=== PATIENT | female | born 1935 | race Caucasian/White ===

== ENCOUNTER 2016-12-05 09:31 | Day surgery (SDC) | payer MEDICARE ==
[~2016-12-05 09:31] MED LIST: BUPIVACAINE HCL 0.75% INJ/PF (7.5 MG/1 ML) 10 ML SDV OD PRN; CHONDR SU A NA/HYALUR INTRAOC KIT (SURGICARE) ONE; EPINEPHRINE INJ/PF 1 MG/1 ML AMPULE ONE; KETOROLAC TROMETHAMINE 0.45% 4 DROP/0.4 ML DROPERETTE OD PRN; LIDOCAINE 4% INJ/PF (40 MG/ML) 5 ML AMPUL OD PRN
[2016-12-05] MEDS: CYCLOPENTOLATE 0.2%/PHENYLEPHRINE 1% OPH SOLN 2 ML OD PRN ×3 (10:35→10:57)
[2016-12-05] MEDS: TROPICAMIDE 1% OPH SOLN 3 ML OD PRN ×3 (10:35→10:57)
[2016-12-05] MEDS: TETRACAINE HCL 0.5% OPH SOLN 0.6 ML DROPERETTE OD PRN ×3 (10:35→11:05)
[2016-12-05] MEDS ORDERED: MIDAZOLAM 2 MG/2 ML INJ ONE (10:38)
[2016-12-05] MEDS: BESIFLOXACIN HCL 0.6% OPH SUSP 5 ML BOTTLE OD PRN ×2 (10:47→11:55)
--- NOTE | 2016-12-05 12:53 | [facility] OPERATIVE REPORT E ---
[facility] Operative Report NAME: BRITNEY WHITT AGE: 81Y DATE OF SURGERY: 12/05/2016 ROOM: PREOPERATIVE DIAGNOSIS: Cataract, right eye. POSTOPERATIVE DIAGNOSIS: Cataract, right eye. PROCEDURE PERFORMED: Phacoemulsification with posterior chamber intraocular lens, right eye. SURGEON: PARISH GALVAN M.D. ANESTHESIA: Topical with MAC. INDICATIONS FOR SURGERY: Difficulty reading words on TV and night driving. Best corrected visual acuity 20/50. DESCRIPTION OF PROCEDURE: The patient was brought to the operating room and placed on the operative table. Following tetracaine drops, topical anesthesia was administered. This consisted of instrument wipe pledgets soaked in a solution of 4% Xylocaine mixed with 0.75% Marcaine in a 1:2 ratio. A 2 x 1 cm pledget was placed in the superior fornix. A 1 x 1 cm pledget was placed in the inferior fornix. The eye was patched shut for 5 minutes. The patch was removed. The eye was sterilely prepped and draped in the usual manner. Lid speculum was placed in the eye. The pledgets were removed, 4-0 black silk sutures were placed around the superior and the inferior rectus muscles to be used as traction. A conjunctival peritomy was made at the 10 o'clock position. Hemostasis was obtained with bipolar cautery. A posterior limbal groove was created using a crescent knife and dissected anteriorly towards the cornea. A sharp point blade was used to create a paracentesis site at the 2 o'clock position. A 2.4 mm keratome was used to enter the anterior chamber through the groove. Viscoelastic was injected into the anterior chamber. An anterior capsulotomy was performed using Utrata forceps in a capsulorrhexis fashion. Hydrodissection and hydrodelineation were performed. Phacoemulsification was performed in njulpn-cyn-lqkkmlf technique. A total of 1 minutes 9 seconds of total phaco time was used. Following this, the I/A unit was used to remove residual cortex. Viscoelastic was injected into the capsular bag. Intraocular lens Model [id number], 20.0 diopters, serial number [id number] was placed in the capsular bag. The I/A unit was used to remove residual viscoelastic. The wound was seen to be watertight under high and low pressure, and no sutures were placed. The intraocular lens was well centered. The pressure was adjusted in the eye to normal pressure. The 4-0 black silk sutures and lid speculum were removed. The eye was shielded after Besivance drops were placed. The patient tolerated the procedure well and was sent to the recovery room in good condition. DICTATING PHYSICIAN: PARISH GALVAN M.D. [id number] [id number] PHY#: [id number] ID: [id number] JOB#: [id number] ACCT: [id number] cc:PARISH GALVAN M.D. >
--- NOTE | 2016-12-05 16:38 | [facility] DISCHARGE SUMMARY E ---
[facility] Discharge Summary NAME: BRITNEY WHITT AGE: 81Y ADMITTED: 12/05/2016 DISCHARGED: 12/05/2016 HOSPITAL COURSE: The patient is a 81-year-old lady who underwent uneventful cataract extraction with intraocular lens implant, right eye on 12/05/2016. She will be discharged to home. She was instructed to resume preoperative medications, to take Tylenol as needed for discomfort, to keep her eye shielded, to use Besivance, Predforte and ketorolac at 3:00 p.m. and 8:00 p.m., and is to follow up in my office in 1 day. DICTATING PHYSICIAN: PARISH GALVAN M.D. [id number] 1251 PHY#: [id number] ID: [id number] JOB#: [id number] ACCT: [id number] cc:PARISH GALVAN M.D. >
== END 2016-12-05 12:38 | disposition home or self-care (01) ==
LOC: SC 09:31
PROVIDERS: ATTEND Ophthalmology
PROC: 08RJ3JZ Replacement of Right Lens with Synthetic Substitute, Percutaneous Approach (ICD-10-PCS; principal; 2016-12-05 10:45)
DX: H25.813 Combined forms of age-related cataract, bilateral (principal); E78.00 Pure hypercholesterolemia, unspecified; I25.10 Atherosclerotic heart disease of native coronary artery without angina pectoris; H40.013 Open angle with borderline findings, low risk, bilateral; H04.123 Dry eye syndrome of bilateral lacrimal glands; H43.813 Vitreous degeneration, bilateral; M19.90 Unspecified osteoarthritis, unspecified site; M79.7 Fibromyalgia; G40.909 Epilepsy, unspecified, not intractable, without status epilepticus; F17.210 Nicotine dependence, cigarettes, uncomplicated; M10.9 Gout, unspecified; M06.9 Rheumatoid arthritis, unspecified; Z88.5 Allergy status to narcotic agent; Z88.0 Allergy status to penicillin; Z88.8 Allergy status to other drugs, medicaments and biological substances; Z79.82 Long term (current) use of aspirin; Z79.1 Long term (current) use of non-steroidal anti-inflammatories (NSAID); Z79.899 Other long term (current) drug therapy
CPT/HCPCS: 66984; V2632; J2250; J3490 ×3; A9270; J0171; 142

== ENCOUNTER 2017-01-08 10:44 | Day surgery (SDC) | payer MEDICARE ==
[~2017-01-08 10:44] MED LIST changes: -BUPIVACAINE HCL 0.75% INJ/PF (7.5 MG/1 ML) 10 ML SDV OD PRN; +BUPIVACAINE HCL 0.75% INJ/PF (7.5 MG/1 ML) 10 ML SDV OS PRN; -CHONDR SU A NA/HYALUR INTRAOC KIT (SURGICARE) ONE; -EPINEPHRINE INJ/PF 1 MG/1 ML AMPULE ONE; +FENTANYL CITRATE INJ/PF 100 MCG/2 ML AMPUL ONE; -KETOROLAC TROMETHAMINE 0.45% 4 DROP/0.4 ML DROPERETTE OD PRN; +KETOROLAC TROMETHAMINE 0.45% 4 DROP/0.4 ML DROPERETTE OS PRN; -LIDOCAINE 4% INJ/PF (40 MG/ML) 5 ML AMPUL OD PRN; +LIDOCAINE 4% INJ/PF (40 MG/ML) 5 ML AMPUL OS PRN; +MIDAZOLAM 2 MG/2 ML INJ ONE
[2017-01-08] MEDS ORDERED: EPINEPHRINE INJ/PF 1 MG/1 ML AMPULE ONE (11:18)
[2017-01-08] MEDS ORDERED: LIDOCAINE 1% INJ-PF (10 MG/ML) 30 ML SDV ONE (11:19)
[2017-01-08] MEDS ORDERED: CHONDR SU A NA/HYALUR INTRAOC KIT (SURGICARE) ONE (11:19)
[2017-01-08] MEDS: BESIFLOXACIN HCL 0.6% OPH SUSP 5 ML BOTTLE OS PRN ×3 (11:45→12:49)
[2017-01-08] MEDS: TETRACAINE HCL 0.5% OPH SOLN 0.6 ML DROPERETTE OS PRN ×2 (11:45→12:17)
[2017-01-08] MEDS: CYCLOPENTOLATE 0.2%/PHENYLEPHRINE 1% OPH SOLN 2 ML OS PRN ×3 (11:45→12:01)
[2017-01-08] MEDS: TROPICAMIDE 1% OPH SOLN 3 ML OS PRN ×3 (11:45→12:01)
--- NOTE | 2017-01-08 13:24 | [facility] OPERATIVE REPORT E ---
[facility] Operative Report NAME: BRITNEY WHITT AGE: 81Y DATE OF SURGERY: ROOM: PROCEDURE: [facility] Operative Report PREOPERATIVE DIAGNOSIS: CATARACT, LEFT EYE. POSTOPERATIVE DIAGNOSIS: CATARACT, LEFT EYE. PROCEDURE PERFORMED: PHACOEMULSIFICATION WITH POSTERIOR CHAMBER INTRAOCULAR LENS, LEFT EYE. SURGEON: PARISH GALVAN MD ANESTHESIA: TOPICAL WITH MAC. INDICATIONS FOR SURGERY: Difficulty with glare with night driving and small print. Best corrected visual acuity is 20/50. PROCEDURE: The patient was brought to the Operating Room and placed on the operative table. Following tetracaine drops, topical anesthesia was administered. This consisted of instrument wipe pledgets soaked in a solution of 4% Xylocaine mixed with 0.75% Marcaine in a 1:2 ratio. A 2 x 1 cm pledget was placed in the superior fornix. A 1 x 1 cm pledget was placed in the inferior fornix. The eye was patched shut for 5 minutes. The patch was removed. The eye was sterilely prepped and draped in the usual manner. Lid speculum was placed in the eye. The pledgets were removed. 4-0 black silk sutures were placed around the superior and the inferior rectus muscles to be used as traction. A conjunctival peritomy was made at the 10 o'clock position. Hemostasis was obtained with bipolar cautery. A posterior limbal groove was created using a crescent knife and dissected anteriorly towards the cornea. A sharp point blade was used to create a paracentesis site at the 2 o'clock position. A 2.4 mm keratome was used to enter the anterior chamber through the groove. Viscoelastic was injected into the anterior chamber. An anterior capsulotomy was performed using Utrata forceps in a capsulorrhexis fashion. Hydrodissection and hydrodelineation were performed. Phacoemulsification was performed in jreyya-tid-cnmxouv technique. A total of 1 minute, 5 seconds phaco time was used. Following this, the I/A unit was used to remove residual cortex. Viscoelastic was injected into the capsular bag. Intraocular lens model SN60WF, 19.5 diopters, serial number [id number] was placed in the capsular bag. The I/A unit was used to remove residual viscoelastic. The wound was seen to be watertight under high and low pressure, and no sutures were placed. The intraocular lens was well centered. The pressure was adjusted in the eye to normal pressure. The 4-0 black silk sutures and lid speculum were removed. The eye was shielded after Besivance drops were placed. The patient tolerated the procedure well and was sent to the Recovery Room in good condition. 0.5 mL of 1% non preserved lidocaine was injected in the eye following the incision. DICTATING PHYSICIAN: PARISH GALVAN M.D. DICTATING PHYSICIAN: PARISH GALVAN M.D. [id number] 1254 PHY#: [id number] ID: [id number] JOB#: [id number] ACCT: [id number] cc:PARISH GALVAN M.D. > MTDD
--- NOTE | 2017-01-08 13:33 | DISCHARGE SUMMARY E ---
Discharge Summary NAME: BRITNEY WHITT : 1935 AGE: 81Y ADMITTED: 01/08/2017 DISCHARGED: HISTORY OF PRESENT ILLNESS: The patient is a 81-year-old lady who underwent uneventful cataract extraction and intraocular lens implant, left eye, on 01/08/2017. She will be discharged to home. She is instructed to resume preoperative medications, take Tylenol as needed for discomfort, to keep her eyes shielded, to use Besivance, Durezol and Ilevro at 3:00 p.m. and 8:00 p.m. and to follow up in my office in 1 day. DICTATING PHYSICIAN: PARISH GALVAN M.D. [id number] 1322 PHY#: [id number] ID: [id number] JOB#: [id number] ACCT: [id number] cc:PARISH GALVAN M.D. >
== END 2017-01-08 13:39 | disposition home or self-care (01) ==
LOC: SC 10:44
PROVIDERS: ATTEND Ophthalmology
PROC: 08RK3JZ Replacement of Left Lens with Synthetic Substitute, Percutaneous Approach (ICD-10-PCS; principal; 2017-01-08 12:00)
DX: H25.812 Combined forms of age-related cataract, left eye (principal); E07.9 Disorder of thyroid, unspecified; F17.210 Nicotine dependence, cigarettes, uncomplicated; M19.90 Unspecified osteoarthritis, unspecified site; M79.7 Fibromyalgia; Z79.899 Other long term (current) drug therapy; Z88.0 Allergy status to penicillin; Z88.1 Allergy status to other antibiotic agents; Z79.82 Long term (current) use of aspirin; Z79.1 Long term (current) use of non-steroidal anti-inflammatories (NSAID)
CPT/HCPCS: 66984; V2632; J2250; J3490 ×4; A9270; J0171; 142; J3010

== ENCOUNTER → 2017-03-10 | Outpatient (CLI) | payer MEDICARE, OTHER ==
--- NOTE | 2017-03-10 11:06 | RADIOLOGY REPORT (SQ) ---
EXAM DESCRIPTION: CT ABDOMEN NO ORAL OR IV COMPLETED DATE/TIME: 03/10/2017 9:53 am REASON FOR STUDY: CHANGE IN BOWEL HABIT R19.4 CHANGE IN BOWEL HABIT R10.9 UNSPECIFIED ABDOMINAL PA IN COMPARISON: None. TECHNIQUE: CT scan of the abdomen performed without intravenous contrast and without oral contrast. Images reviewed with lung, soft tissue, and bone windows. Reconstructed coronal and sagittal MPR im ages reviewed. All images stored on PACS. All CT scanners at this facility use dose modulation, iterative reconstruction, and/or weight based d osing when appropriate to reduce radiation dose to as low as reasonably achievable (ALARA). [facility]: Dose Right [facility]: CareDose [facility]: Dose Right [facility]: Teradose 4D [facility]: Skipjump RADIATION DOSE: 7.76mGy. LIMITATIONS: None. FINDINGS: LOWER CHEST: Mild subpleural fibrosis in the right lower lobe. NONCONTRASTED LIVER, SPLEEN, ADRENALS: Evaluation limited by lack of IV contrast. No identified sign ificant masses. PANCREAS: No masses. No peripancreatic inflammatory changes. GALLBLADDER: No identified stones by CT criteria. No inflammatory changes to suggest cholecystitis. RIGHT KIDNEY AND URETER: No solid masses. Assessment limited by lack of IV contrast. No significant c alcification. No hydronephrosis or hydroureter. LEFT KIDNEY AND URETER: No solid masses. Incidental cyst. Assessment limited by lack of IV contrast . No significant calcification. No hydronephrosis or hydroureter. AORTA AND RETROPERITONEUM: Atherosclerotic without aneurysm. BOWEL AND PERITONEAL CAVITY: Scattered colonic diverticula. No bowel loop distention. No upper abdo julia ascites, bulky adenopathy or abnormal gas. APPENDIX: Incomplete assessment, unremarkable as visualized. ABDOMINAL WALL: No abdominal wall hernias. BONES: Mild scoliosis. Multilevel spondylosis. OTHER: No other significant finding. IMPRESSION: 1. No acute or suspicious abdominal abnormality on noncontrast evaluation. TECHNICAL DOCUMENTATION: JOB ID: [id number] Quality ID # [id number]: Final reports with documentation of one or more dose reduction techniques (e.g., Au tomated exposure control, adjustment of the mA and/or kV according to patient size, use of iterative reconstruction technique) 2010 [employer]- All Rights Reserved
== END ==
LOC: RAD 09:39
PROVIDERS: ATTEND Internal Medicine
DX: R10.9 Unspecified abdominal pain (principal)
CPT/HCPCS: 74150

== ENCOUNTER 2017-04-08 07:55 | Day surgery (SDC) | payer MEDICARE, OTHER ==
--- NOTE | 2017-04-02 11:02 | HISTORY AND PHYSICAL E ---
History and Physical NAME: BRITNEY WHITT : 1935 AGE: 81Y ADMITTED: 04/08/2017 ROOM: REFERRING PHYSICIAN: Dr. Edwards of [facility] CHIEF COMPLAINT: Vague nonspecific abdominal pain, anorexia, weight loss, constipation. HISTORY: Patient presented for colon screening. PAST MEDICAL HISTORY: Patient does have: 1. Hypothyroid. 2. Hyperlipidemia. 3. Hypertension. 4. Carotid artery stenosis. 5. Spinal stenosis. 6. Fibromyalgia. 7. Vitamin D deficiency. MEDICATIONS: 1. Clonazepam. 2. Zyrtec. 3. Baclofen. 4. Vitamin E. 5. Vitamin D. I saw the patient 03/17 referred by doctors in [place] and she does have history of polyps, constipation. Last colonoscopy done with Dr. Feliz in the OR. SOCIAL HISTORY: She smokes half pack a day. She does not drink. She is single. PAST SURGICAL HISTORY: 1. Colonoscopy 5 years ago, Dr. Feliz. 2. She did have hysterectomy. 3. Lumpectomy, right breast. REVIEW OF SYSTEMS: CARDIAC: Hypertension. ENDOCRINE: Hypothyroid. GASTROINTESTINAL: Rectal bleeding, abdominal pain, colon screening. MUSCULOSKELETAL: Arthritis. FAMILY HISTORY: Father had cardiac disease. Mom has cardiac disease. PHYSICAL EXAMINATION: GENERAL: Pleasant 81-year-old female. VITAL SIGNS: Weight 162, blood pressure is 130/80, pulse 80, afebrile, temp is 98. HEENT: Normal. NECK: Supple. LUNGS: Clear. ABDOMEN: Soft. NEUROLOGIC: Negative. CONCLUSION: Colon screening. PLAN: Colonoscopy. DICTATING PHYSICIAN: VJ DELVALLE M.D. [id number] [id number] PHY#: [id number] ID: [id number] JOB#: [id number] ACCT: [id number] cc:VJ DELVALLE M.D. >
[~2017-04-08 07:55] MED LIST changes: -BUPIVACAINE HCL 0.75% INJ/PF (7.5 MG/1 ML) 10 ML SDV OS PRN; +EPINEPHRINE INJ 1 MG/10 ML DISP.SYRIN ONE; -FENTANYL CITRATE INJ/PF 100 MCG/2 ML AMPUL ONE; +GLUCAGON,HUMAN RECOMB 1 MG INJ ONE; -KETOROLAC TROMETHAMINE 0.45% 4 DROP/0.4 ML DROPERETTE OS PRN; +LACTATED RINGERS 1000 ML IV PRN; +LIDOCAINE 0.5% INJ-PF (5 MG/ML) 50 ML SDV SUBCUT PRN; -LIDOCAINE 4% INJ/PF (40 MG/ML) 5 ML AMPUL OS PRN; -MIDAZOLAM 2 MG/2 ML INJ ONE
[2017-04-08] MEDS ORDERED: MIDAZOLAM 2 MG/2 ML INJ ONE ×2 (10:31)
[2017-04-08] MEDS ORDERED: PROPOFOL INJ 200 MG/20 ML VIAL IV ONE (10:32)
[2017-04-08] MEDS ORDERED: KETAMINE HCL INJ 500 MG/10 ML VIAL ONE (10:32)
[2017-04-08] MEDS ORDERED: DIPHENHYDRAMINE HCL 50 MG/ML VIAL IV PRN (10:49)
--- NOTE | 2017-04-08 12:39 | OPERATIVE REPORT E ---
Operative Report NAME: BRITNEY WHITT : 1935 AGE: 81Y DATE OF SURGERY: 04/08/2017 ROOM: PREOPERATIVE DIAGNOSIS: Colon screening. POSTOPERATIVE DIAGNOSES: 1. Diminutive polyp, rectum. 2. Sigmoid diverticulosis, severe. 3. Descending colon diverticulosis. PROCEDURE: Incomplete colonoscopy converted into flexible sig. SURGEON: VJ DELVALLE M.D. ANESTHESIA: Done in the OR with anesthesia standby. TISSUE REMOVED OR ALTERED: None. DESCRIPTION OF PROCEDURE: Rectal exam normal. Rectosigmoid shows diminutive polyps in the rectum. Sigmoid diverticulosis, severe. Descending colon severe diverticulosis. Sharp angles between sigmoid and descending. Unable to advance the scope into the descending completely because of severity of diverticulosis and sharp angle. The procedure was terminated. PLAN: We will do acute abdomen to rule out perforation and will keep the patient on full liquids. Baseline CBC. Consider outpatient CT pending lab results. DICTATING PHYSICIAN: VJ DELVALLE M.D. 1209M 1115 Y#: [id number] ID: [id number] JOB#: [id number] ACCT: [id number] cc:VJ DELVALLE M.D. >
[2017-04-08 12:41] LABS: ABSOLUTE BASOPHILS # (AUTO) 0.2 10^3/uL (0.0-0.2); ABSOLUTE EOSINOPHILS # (AUTO) 0.2 10^3/uL (0.0-0.6); ABSOLUTE MONOCYTES (AUTO) 1.1 10^3/uL (0.1-1.4); ABSOLUTE NEUT (AUTO) 13.2 10^3/uL (1.7-8.2); EOSINOPHILS % (AUTO) 1.2 % (0-6); HEMATOCRIT 36.8 % (36.0-47.0); HEMOGLOBIN 12.3 g/dL (12.0-15.5); HGB HCT DIFFERENCE 0.1; MEAN CORPUSCULAR HEMOGLOBIN 32.7 pg (27.0-33.4); MEAN CORPUSCULAR HGB CONC 33.5 g/dL (32.0-36.0); MEAN CORPUSCULAR VOLUME 98 fl (80-97); MONOCYTES % (AUTO) 6.4 % (3-13); RED BLOOD COUNT 3.77 10^6/uL (3.72-5.28); RED CELL DISTRIBUTION WIDTH 15.6 % (11.5-14.0); SEGMENTED NEUTROPHILS % (AUTO) 74.4 % (42-78); WHITE BLOOD COUNT 17.8 10^3/uL (4.0-10.5)
--- NOTE | 2017-04-08 13:00 | RADIOLOGY REPORT (SQ) ---
EXAM DESCRIPTION: ACUTE ABDOMEN SERIES COMPLETED DATE/TIME: 04/08/2017 12:34 pm REASON FOR STUDY: R/O PERFORATION. S/P COLON Z12.11 ENCOUNTER FOR SCREENING FOR MALIGNANT NEOPLASM OF COL R97.0 ELEVATED CARCINOEMBRYONIC ANTIGEN CEA Z79.899 OTHER NURSING HOME (CURRENT) DRUG THERAPY COMPARISON: CT abdomen pelvis 03/10/2017 NUMBER OF VIEWS: Three views. TECHNIQUE: Frontal chest, supine abdomen and upright abdomen radiographic images acquired. LIMITATIONS: None. FINDINGS: CHEST: Increased interstitial markings at both lung bases likely pulmonary fibrosis. This is similar compared to CT abdomen pelvis 03/10/2017. No fluffy alveolar infiltrates worrisome for edema or pneumonia. No pleural effusion. No pneumothor ax. FREE AIR: None. No abnormal gas collections. BOWEL GAS PATTERN: Post colonoscopy, with mild gaseous distension of stomach fundus, colon, and small bowel. CALCIFICATIONS: Calcified mitral annulus. Left upper quadrant splenic artery calcifications. Calcif ied pelvic phleboliths. HARDWARE: None in the abdomen. SOFT TISSUES: No gross mass or suggestion of organomegaly. BONES: Convex rightward degenerative lumbar curvature OTHER: Next IMPRESSION: No free subdiaphragmatic air. Mild gaseous distension of colon and small bowel post col onoscopy TECHNICAL DOCUMENTATION: JOB ID: [id number] [employer]- All Rights Reserved
[2017-04-08 13:03] LABS: ALANINE AMINOTRANSFERASE 27 U/L (9-52); ALBUMIN 4.1 g/dL (3.5-5.0); ALKALINE PHOSPHATASE 57 U/L (38-126); ANION GAP 10 (5-19); ASPARTATE AMINO TRANSFERASE 30 U/L (14-36); BILIRUBIN,DIRECT 0.3 mg/dL (0.0-0.4); BILIRUBIN,TOTAL 0.6 mg/dL (0.2-1.3); BLOOD UREA NITROGEN 15 mg/dL (7-20); CALCIUM 9.8 mg/dL (8.4-10.2); CARBON DIOXIDE 24 mmol/L (22-30); CHLORIDE 104 mmol/L (98-107); CREATININE RESULT 0.91 mg/dL (0.52-1.25); GLUCOSE 131 mg/dL (75-110); POTASSIUM 4.4 mmol/L (3.6-5.0); SODIUM 138.4 mmol/L (137-145); TOTAL PROTEIN 7.2 g/dL (6.3-8.2)
[2017-04-08 13:36] LABS: CARCINOEMBRYONIC ANTIGEN 2.4 ng/mL (<3.0)
[2017-04-08 13:52] VITALS: BP 127/84
--- NOTE | 2017-04-09 10:01 | DISCHARGE SUMMARY E ---
Discharge Summary NAME: BRITNEY WHITT : 1935 AGE: 81Y ADMITTED: 04/08/2017 DISCHARGED: 04/08/2017 HOSPITAL COURSE: A 81-year-old female who underwent screening colonoscopy. Her colon exam was done in the OR with anesthesia standby. The patient had severe sigmoid diverticulosis with sharp angles, sigmoid descending. Dimunitive benign looking polyps in the rectum. PLAN: We will obtain acute abdominal series to make sure there is no perforation. Discharge the patient on full liquids. Baseline lab studies. See the patient outpatient and set her up for abdominal CT. The patient is known to have multiple medical problems: Fibromyalgia, carotid, hypertension, hyperlipidemia. DICTATING PHYSICIAN: VJ DELVALLE M.D. 1221M 1138 PHY#: [id number] ID: [id number] JOB#: [id number] ACCT: [id number] cc:LETHA NAILS MD [facility] VJ DELVALLE M.D. >
== END 2017-04-08 12:10 | disposition home or self-care (01) ==
LOC: OROUT 07:55
PROVIDERS: ATTEND Specialist
PROC: 0DJD8ZZ Inspection of Lower Intestinal Tract, Via Natural or Artificial Opening Endoscopic (ICD-10-PCS; principal; 2017-04-08 10:00)
DX: Z12.11 Encounter for screening for malignant neoplasm of colon (principal); R97.0 Elevated carcinoembryonic antigen [CEA]; K57.30 Diverticulosis of large intestine without perforation or abscess without bleeding; I10 Essential (primary) hypertension; E78.5 Hyperlipidemia, unspecified; E03.9 Hypothyroidism, unspecified; M79.7 Fibromyalgia; I65.29 Occlusion and stenosis of unspecified carotid artery; M48.00 Spinal stenosis, site unspecified; E55.9 Vitamin D deficiency, unspecified; M19.90 Unspecified osteoarthritis, unspecified site; Z79.899 Other long term (current) drug therapy
CPT/HCPCS: 36415; 82378; 85025; 80053; 74022; G0104; J2250; J1610; J3490; J2704; 810; J0171